=== PATIENT | male | born 1990 | race Caucasian/White ===

== ENCOUNTER 2020-07-12 18:56 | Observation (INO) | payer OTHER ==
[~2020-07-12] VITALS: Ht 175.3 cm; Wt 61.2 kg
[~2020-07-12 18:56] MED LIST changes: -HYDROCODON-ACE1 EAC4 PO; -POTASSIUM99 M1 PO; -TRAMADOL HCL50 MG PO; -VOLTAREN EC 7575 MG PO
[2020-07-12 19:45] LABS: HEMOGLOBIN 13.2 gm/dl (14.0-17.5); RED BLOOD COUNT 4.25 M/UL (4.20-5.50); WHITE BLOOD COUNT 5.7 K/UL (4.5-11.0)
[2020-07-12 20:06] LABS: BUN/CREATININE RATIO 22 (0-10)
[2020-07-12] MEDS ORDERED: VOLTAREN EC 7575 MG PO (21:10)
[2020-07-12] MEDS ORDERED: POTASSIUM99 M1 PO (21:12)
[2020-07-13] MEDS ORDERED: HYDROCODON-ACE1 EAC4 PO (11:37)
[2020-07-13] MEDS ORDERED: TRAMADOL HCL50 MG PO (16:05)
== END 2020-07-13 16:50 | disposition home or self-care (01) ==
LOC: ER1 18:56 → CDU 20:19 → PROG CARE 23:40
PROVIDERS: Physician Assistant; ADMIT Surgery
DX: K35.80 Unspecified acute appendicitis (principal); M19.90 Unspecified osteoarthritis, unspecified site; F17.210 Nicotine dependence, cigarettes, uncomplicated; Z80.42 Family history of malignant neoplasm of prostate; Z83.6 Family history of other diseases of the respiratory system; Z20.822 Contact with and (suspected) exposure to COVID-19
CPT/HCPCS: 36415; 80053; 81001; 85025; 87635; 96374; 96375; 99284; G0378; J0690; J1100; J1885; J2001; J2250; J2405; J2543; J2704; J2710; J2765; J3010; J7120; Q9967

== ENCOUNTER → 2020-07-12 | Outpatient (CLI) | payer OTHER ==
[~2020-07-12] MED LIST: HYDROCODON-ACE1 EAC4 PO; NAPROSYN500 MG PO; POTASSIUM99 M1 PO; TRAMADOL HCL50 MG PO; VOLTAREN EC 7575 MG PO
--- NOTE | 2020-07-12 17:50 | NUR ---
was contacted today by radiologist for send out reads, who reads a scan on mr alfaro to note an acute appendicitis, we are unable to contact his ordering provider. per policy i have called mr alfaro and asked him to return to the ER to be evaluated by a dr. mr alfaro is compliant and states he will return to the ER soon. his number is [phone]
== END ==
LOC: CT 14:29
DX: R10.31 Right lower quadrant pain (principal); K35.80 Unspecified acute appendicitis
CPT/HCPCS: Q9967

== ENCOUNTER 2021-04-30 15:36 | Emergency (ER) | payer OTHER ==
[~2021-04-30 15:36] MED LIST changes: +HYDROCODON-ACE1 EAC4 PO; +POTASSIUM99 M1 PO; +TRAMADOL HCL50 MG PO; +VOLTAREN EC 7575 MG PO
[2021-04-30] MEDS ORDERED: CYCLOBENZAPRINE10 MG PO (19:13)
[2021-04-30] MEDS ORDERED: MOBIC15 MG PO (19:13)
== END 2021-04-30 19:26 | disposition home or self-care (01) ==
LOC: ER1 15:36
DX: S16.1XXA Strain of muscle, fascia and tendon at neck level, initial encounter (principal); S29.012A Strain of muscle and tendon of back wall of thorax, initial encounter; F17.200 Nicotine dependence, unspecified, uncomplicated; R20.2 Paresthesia of skin; X36.1XXA Avalanche, landslide, or mudslide, initial encounter
CPT/HCPCS: 72125; 72128; 99283